=== PATIENT | male | born 1950 | race Two or more races ===

== ENCOUNTER 2018-02-26 09:59 | Outpatient (CLI) | payer OTHER | END 2018-02-26 10:04 | disposition home or self-care (01) | LOC: LAB 09:59 | DX: R97.20 Elevated prostate specific antigen [PSA] (principal) ==

== ENCOUNTER 2018-04-13 07:09 | Outpatient (CLI) | payer OTHER | END 2018-04-13 07:12 | disposition home or self-care (01) | LOC: SONOGRAMA 07:09 | DX: R97.20 Elevated prostate specific antigen [PSA] (principal) ==